=== PATIENT | male | born 1960 | race Caucasian/White ===

== ENCOUNTER 2019-01-17 07:21 | Day surgery (SDC) | payer MEDICAID ==
[~2019-01-17 07:21] MED LIST: Brimonidine 0.2% Ophth Soln 5 ML Bottle EYELF SCH; Cefuroxime 10 MG/ML SYRINGE EYELF SCH; Lidocaine 1% PF 2 ML SDV INJECT SCH; Phenylephrine 2.5% Ophth Soln 2 ML Bot EYELF SCH; Pilocarpine 4% Ophth Soln 15 ML Bot EYELF SCH; Polymyxin B/Trimethoprim 10 ML Bottle EYELF SCH; Tetracaine HCl/PF 0.5% 4 ML Bottle EYELF SCH; Tropicamide 1% Ophth Soln 15 ML Bottle EYELF SCH
[2019-01-17] MEDS: Polymyxin B/Trimethoprim 10 ML Bottle EYELF SCH ×3 (07:39→09:30)
[2019-01-17] MEDS: Brimonidine 0.2% Ophth Soln 5 ML Bottle EYELF SCH ×3 (07:44→09:30)
[2019-01-17] MEDS: Phenylephrine 2.5% Ophth Soln 2 ML Bot EYELF SCH ×5 (07:49→09:08)
[2019-01-17] MEDS: Tropicamide 1% Ophth Soln 15 ML Bottle EYELF SCH ×4 (07:55→08:45)
--- NOTE | 2019-01-17 07:55 | PCM.PREANE ---
Preanesthetic Assessment - Anesthesia/Transfusion/Family Hx Anesthesia History: Prior Anesthesia Without Reaction Family History of Anesthesia Reaction: No Transfusion History: No Prior Transfusion(s) - Review of Systems General: No Symptoms Pulmonary: No Symptoms Gastrointestinal: No Symptoms Neurological: No Symptoms Other: Reports: None - Physical Assessment NPO Status Date: 01/16/19 NPO Status Time: 21:00 Pulse: 73 O2 Sat by Pulse Oximetry: 94 Respiratory Rate: 18 Blood Pressure: 136/82 Temperature: 97.8 C Vital Signs: Last Vital Signs Temp 36.6 C 01/17/19 07:39 Pulse 73 01/17/19 07:39 Resp 18 01/17/19 07:39 BP 136/82 01/17/19 07:39 Pulse Ox 94 L 01/17/19 07:39 Height: 1.63 m Weight: 113.852 kg ASA Class: 1 Mental Status: Alert & Oriented x3 Airway Class: Mallampati = 1 Dentition: Reports: Normal Dentition Thyro-Mental Finger Breadths: 3 Mouth Opening Finger Breadths: 3 ROM/Head Extension: Full Lungs: Clear to Auscultation, Normal Respiratory Effort Cardiovascular: Regular Rate, Regular Rhythm - Allergies Allergies/Adverse Reactions: Allergies Allergy/AdvReac Type Severity Reaction Status Date / Time No Known Allergies Allergy Verified 01/14/19 10:22 - Acknowledgements Anesthesia Type Planned: MAC Pt an Appropriate Candidate for the Planned Anesthesia: Yes Alternatives and Risks of Anesthesia Discussed w Pt/Guardian: Yes Pt/Guardian Understands and Agrees with Anesthesia Plan: Yes PreAnesthesia Questionnaire HEENT History: Reports: Cataract Cardiovascular History: Reports: None Respiratory History: Reports: None Gastrointestinal History: Reports: None Genitourinary History: Reports: None Musculoskeletal History: Reports: Back Pain, Chronic (pt states has herniated disc, needing surgery) Neurological History: Reports: None Psychiatric History: Reports: None Endocrine/Metabolic History: Reports: None - Past Surgical History HEENT Surgical History: Reports: Tonsillectomy Cardiovascular Surgical History: Reports: None Respiratory Surgical History: Reports: None GI Surgical History: Reports: None, Cholecystectomy Female Surgical History: Reports: None Male Surgical History: Reports: None Endocrine Surgical History: Reports: None Neurological Surgical History: Reports: None Musculoskeletal Surgical History: Reports: Arthroscopic Knee, Other (See Below) (foot) - SUBSTANCE USE Tobacco Use Within Last Twelve Months: Smokeless Tobacco - HOME MEDS Home Medications: Home Meds Multivitamin [Multivitamins] 1 tab PO DAILY 01/17/19 [History] Oxybutynin 5 mg PO DAILY 01/17/19 [History] - CURRENT (IN HOUSE) MEDS Current Meds: Current Medications Brimonidine Tartrate (Alphagan 0.2% Ophth Soln) 0 ml EYELF ASDIRECTED IRIS Stop: 01/17/19 18:00 Last Admin: 01/17/19 07:44 Dose: 1 drop Cefuroxime Sodium (Zinacef) 0 mg EYELF ASDIRECTED IRIS Stop: 01/17/19 18:00 Lidocaine HCl (Xylocaine-Mpf 1%) 0 ml INJECT ASDIRECTED IRIS Stop: 01/17/19 18:00 Phenylephrine HCl (Ankush-Synephrine 2.5% Ophth Soln) 0 ml EYELF ASDIRECTED IRIS Stop: 01/17/19 18:00 Last Admin: 01/17/19 07:49 Dose: 1 drop Pilocarpine HCl (Pilocar 4% Ophth Soln) 0 ml EYELF ASDIRECTED IRIS Stop: 01/17/19 18:00 Polymyxin/Trimethoprim Sulfate (Polytrim Ophth Soln) 0 ml EYELF ASDIRECTED IRIS Stop: 01/17/19 18:00 Last Admin: 01/17/19 07:39 Dose: 1 drop Tetracaine HCl (Tetracaine 0.5% Steri-Unit Karine) 0 ml EYELF ASDIRECTED IRIS Stop: 01/17/19 18:00 Tropicamide (Mydriacyl 1% Ophth Soln) 0 ml EYELF ASDIRECTED IIRS Stop: 01/17/19 18:00 Discontinued Medications Brimonidine Tartrate (Alphagan 0.2% Ophth Soln) 0 ml EYELF ASDIRECTED IRIS Stop: 01/15/19 18:00 Cefuroxime Sodium (Zinacef) 0 mg EYELF ASDIRECTED IRIS Stop: 01/15/19 18:00 Lidocaine HCl (Xylocaine-Mpf 1%) 0 ml INJECT ASDIRECTED IRIS Stop: 01/15/19 18:00 Phenylephrine HCl (Ankush-Synephrine 2.5% Ophth Soln) 0 ml EYELF ASDIRECTED IRIS Stop: 01/15/19 18:00 Pilocarpine HCl (Pilocar 4% Ophth Soln) 0 ml EYELF ASDIRECTED IRIS Stop: 01/15/19 18:00 Polymyxin/Trimethoprim Sulfate (Polytrim Ophth Soln) 0 ml EYELF ASDIRECTED IRIS Stop: 01/15/19 18:00 Tetracaine HCl (Tetracaine 0.5% Steri-Unit Karine) 0 ml EYELF ASDIRECTED IRIS Stop: 01/15/19 18:00 Tropicamide (Mydriacyl 1% Ophth Soln) 0 ml EYELF ASDIRECTED IRIS Stop: 01/15/19 18:00
[2019-01-17] MEDS: Tetracaine HCl/PF 0.5% 4 ML Bottle EYELF SCH ×2 (09:02→09:14)
== END 2019-01-17 09:40 | disposition home or self-care (01) ==
LOC: JD.SDS 07:21
PROVIDERS: ATTEND Ophthalmology
DX: H25.813 Combined forms of age-related cataract, bilateral (principal); H16.223 Keratoconjunctivitis sicca, not specified as Sjogren's, bilateral; H16.103 Unspecified superficial keratitis, bilateral; H02.831 Dermatochalasis of right upper eyelid; H02.834 Dermatochalasis of left upper eyelid; F17.200 Nicotine dependence, unspecified, uncomplicated; M19.90 Unspecified osteoarthritis, unspecified site
CPT/HCPCS: 66984; A9270; C1780; J0697; J2001

== ENCOUNTER 2021-05-24 10:28 | Day surgery (SDC) | payer MEDICAID ==
--- NOTE | 2021-05-24 09:50 | PCM.PREANE ---
Preanesthetic Assessment - Procedure Proposed Procedure: Right total knee arthroplasty - Anesthesia/Transfusion/Family Hx Anesthesia History: Prior Anesthesia Reaction Type of Anesthesia Reaction: Other (see below) Other Type of Anesthesia Reaction Comment: Anxious and combative when waking from general anesthesia Family History of Anesthesia Reaction: No Transfusion History: No Prior Transfusion(s) Intubation History: Unknown - Review of Systems General: No Symptoms Pulmonary: No Symptoms Cardiovascular: No Symptoms Gastrointestinal: No Symptoms Neurological: No Symptoms Other: Reports: None - Physical Assessment NPO Status Date: 05/23/21 NPO Status Time: 20:00 Vital Signs: 132/94 HR 72 16 94% 98.3 Height: 1.93 m Weight: 122 kg ASA Class: 2 Mental Status: Alert & Oriented x3 Airway Class: Mallampati = 2 Dentition: Reports: Normal Dentition Thyro-Mental Finger Breadths: 3 Mouth Opening Finger Breadths: 3 ROM/Head Extension: Full Lungs: Clear to Auscultation, Normal Respiratory Effort Cardiovascular: Regular Rate, Regular Rhythm - Lab Values: Labs reviewed and okay to proceed - Imaging/EKG Impressions: EKG 05/04/21: NSR HR 62 Chest xray 05/04/21: No acute findings Myocardial perfusion scan 11/28/17: EF 47-54% - Allergies Allergies/Adverse Reactions: Allergies Allergy/AdvReac Type Severity Reaction Status Date / Time No Known Allergies Allergy Verified 05/21/21 13:54 - Blood Blood Available: No Product(s) Available: None - Anesthesia Plan Pre-Op Medication Ordered: None - Acknowledgements Anesthesia Type Planned: Spinal Pt an Appropriate Candidate for the Planned Anesthesia: Yes Alternatives and Risks of Anesthesia Discussed w Pt/Guardian: Yes Pt/Guardian Understands and Agrees with Anesthesia Plan: Yes PreAnesthesia Questionnaire HEENT History: Reports: Cataract Cardiovascular History: Reports: Other (See Below) Other Cardiovascular History: venous insufficiency, pulmonary HTN, varicose veins Respiratory History: Reports: Bronchitis, Recurrent, PE, Pneumonia, Recurrent Other Respiratory History: Hx pulmonary hypertension Gastrointestinal History: Reports: Gastritis, GERD, Other (See Below) Other Gastrointestinal History: biliary dyskinesia Genitourinary History: Other Genitourinary History: cystoscopy, ED, interstitial cystitis Musculoskeletal History: Reports: Back Pain, Chronic Other Neuro History: Low back pain with bilateral sciatica Psychiatric History: Reports: Anxiety Other Psychiatric History: Insomnia Endocrine/Metabolic History: Reports: None Other Immunologic History: MRSA positive Other Dermatologic History: cold sores - Infectious Disease History Other Infectious Disease History: Recurrent cold sores - Past Surgical History HEENT Surgical History: Reports: Tonsillectomy Cardiovascular Surgical History: Respiratory Surgical History: GI Surgical History: Reports: Cholecystectomy, EGD Female Surgical History: Reports: None Male Surgical History: Reports: None Endocrine Surgical History: Reports: None Neurological Surgical History: Reports: None Musculoskeletal Surgical History: Reports: Arthroscopic Knee, Other (See Below) Other Musculoskeletal Surgeries/Procedures:: left bunionectomy, hallux valgus - SUBSTANCE USE Tobacco Use Status *Q: Former Tobacco User Tobacco Use Within Last Twelve Months: Smokeless Tobacco Second Hand Smoke Exposure: No Days Per Week of Alcohol Use: 1 Number of Drinks Per Day: 1 Total Drinks Per Week: 1 Recreational Drug Use History: No - HOME MEDS Home Medications: Home Meds Albuterol [Ventolin 2 MG/5 ML] 1 puff INH ASDIRECTED PRN 05/21/21 [History] Aspirin 1 tab PO DAILY 05/21/21 [History] Aspirin/Acetaminophen/Caffeine [Excedrin Extra Strength Caplet] 1 tab PO TID PRN 05/21/21 [History] Celecoxib [CeleBREX] 1 cap PO ASDIRECTED PRN 05/21/21 [History] Fish Oil/[place]-3 Fatty Acids [Fish Oil 1,000 MG] 1 cap PO DAILY 05/21/21 [History] Sildenafil Citrate [Viagra] 50 mg PO ASDIRECTED PRN 05/21/21 [History] Tolterodine Tartrate [Detrol LA] 1 cap PO DAILY 05/21/21 [History] valACYclovir [Valtrex] 1 tab PO ASDIRECTED PRN 05/21/21 [History] Apixaban [Eliquis] 2.5 mg PO BID #84 tablet 05/24/21 [Rx] Cyclobenzaprine [Flexeril] 10 mg PO BID PRN #20 tab 05/24/21 [Rx] oxyCODONE 5 - 10 mg PO Q4H PRN #40 tab 05/24/21 [Rx] - CURRENT (IN HOUSE) MEDS Current Meds: Current Medications Acetaminophen (Acetaminophen 325 Mg Tab) 975 mg PO ONETIME IRIS Stop: 05/24/21 16:00 Albuterol (Albuterol 0.083% 2.5 Mg/3 Ml Neb Soln) 2.5 mg NEB ONETIME IRIS Stop: 05/24/21 16:00 Morphine Sulfate 8 mg/Epinephrine HCl 0.3 mg/Cefuroxime Sodium 750 mg/Ketorolac Tromethamine 30 mg/Sodium Chloride 7.9 ml 0 mg .XX ASDIRECTED PRN PRN Reason: Pain Stop: 05/24/21 14:00 Lactated Ringer's (Ringers, Lactated) 1,000 mls @ 125 mls/hr IV ASDIRECTED IRIS Stop: 05/24/21 23:00 Lidocaine/Sodium Bicarbonate (Lidocaine 1%/Sod Bicarbonate In Ns 8.4% 1 Ml Syringe) 0.25 ml IDERM ONETIME PRN PRN Reason: Prior to IV Start Stop: 05/24/21 18:00 Oxycodone HCl (Oxycodone Er 10 Mg Tab.Er) 10 mg PO ONETIME IRIS Stop: 05/24/21 16:00 Pregabalin (Pregabalin 25 Mg Cap) 50 mg PO ONETIME IRIS Stop: 05/24/21 16:00 Sodium Chloride (Sodium Chloride 0.9% 10 Ml Syringe) 10 ml FLUSH ASDIRECTED PRN PRN Reason: Keep Vein Open Stop: 05/24/21 18:00 Discontinued Medications Cefazolin Sodium (Cefazolin 1 Gm Vial) Confirm Administered Dose 2 gm .ROUTE .STK-MED ONE Stop: 05/24/21 08:35 Ephedrine Sulfate (Ephedrine 50 Mg/Ml Sdv) Confirm Administered Dose 50 mg .ROUTE .STK-MED ONE Stop: 05/24/21 08:55 Epinephrine HCl (Epinephrine 1 Mg/Ml Sdv) Confirm Administered Dose 1 mg .ROUTE .STK-MED ONE Stop: 05/24/21 08:24 Fentanyl (Fentanyl 100 Mcg/2 Ml Sdv) Confirm Administered Dose 100 mcg .ROUTE .STK-MED ONE Stop: 05/24/21 08:34 Midazolam HCl (Midazolam 1 Mg/Ml 2 Ml Sdv) Confirm Administered Dose 2 mg .ROUTE .STK-MED ONE Stop: 05/24/21 08:36 Propofol (Propofol 200 Mg/20 Ml Sdv) Confirm Administered Dose 400 mg .ROUTE .STK-MED ONE Stop: 05/24/21 08:36 Ropivacaine (Ropivacaine 0.5% 5 Mg/Ml 30 Ml Sdv) Confirm Administered Dose 30 ml .ROUTE .[email or web address] ONE Stop: 05/24/21 08:24
[~2021-05-24 10:28] MED LIST changes: +Acetaminophen 325 MG Tab PO SCH; +Albuterol 0.083% 2.5 MG/3 ML Neb Soln NEB SCH; -Brimonidine 0.2% Ophth Soln 5 ML Bottle EYELF SCH; -Cefuroxime 10 MG/ML SYRINGE EYELF SCH; +EPINEPHrine 1 MG/ML SDV ONE; +Lactated Ringers 1,000 ML IV SCH; -Lidocaine 1% PF 2 ML SDV INJECT SCH; +Lidocaine 1%/Sod Bicarbonate in NS 8.4% 1 ML Syringe IDERM PRN; +Midazolam 1 MG/ML 2 ML SDV ONE; +Morphine 8 MG, EPINEPHrine 0.3 MG, Cefuroxime 750 MG, Ketorolac 30 MG, Sodium Chloride ... PRN; -Phenylephrine 2.5% Ophth Soln 2 ML Bot EYELF SCH; -Pilocarpine 4% Ophth Soln 15 ML Bot EYELF SCH; -Polymyxin B/Trimethoprim 10 ML Bottle EYELF SCH; +Pregabalin 25 MG Cap PO SCH; +Propofol 200 MG/20 ML SDV ONE; +Ropivacaine 0.5% 5 MG/ML 30 ML SDV ONE; +Sodium Chloride 0.9% 10 ML Syringe FLUSH PRN; -Tetracaine HCl/PF 0.5% 4 ML Bottle EYELF SCH; -Tropicamide 1% Ophth Soln 15 ML Bottle EYELF SCH; +ceFAZolin 1 GM Vial ONE; +ePHEDrine 50 MG/ML SDV ONE; +fentaNYL 100 MCG/2 ML SDV ONE; +oxyCODONE ER 10 MG TAB.ER PO SCH
[2021-05-24] MEDS ORDERED: Vancomycin 1 GM SDV ONE (10:41)
[2021-05-24] MEDS ORDERED: Vancomycin 2 GM in Sodium Chloride 0.9% 500 ML IV ONE (12:00)
[2021-05-24] MEDS ORDERED: Lactated Ringers 1,000 ML ONE (12:39)
[2021-05-24] MEDS ORDERED: Propofol 200 MG/20 ML SDV ONE ×3 (12:54→13:39)
[2021-05-24] MEDS ORDERED: Dexmedetomidine 200 MCG/2 ML SDV ONE (13:22)
[2021-05-24] MEDS ORDERED: Sodium Chloride 0.9% 100 ML ONE (13:22)
--- NOTE | 2021-05-24 14:33 | PCM.POSTAN ---
POST ANESTHESIA ASSESSMENT - MENTAL STATUS Mental Status: Alert, Oriented - VITAL SIGNS Vital Signs: Last Vital Signs Temp 98.3 F 05/24/21 10:35 Pulse 72 05/24/21 10:35 Resp 16 05/24/21 10:35 BP 132/94 H 05/24/21 10:35 Pulse Ox 93 L 05/24/21 11:21 Vitals at 1400: BP: 122/72 HR: 66 RR: 14 Temp: 97.6 92% 4 Liters - RESPIRATORY Respiratory Status: Respiratory Rate WNL, Airway Patent, O2 Saturation Stable - CARDIOVASCULAR CV Status: Pulse Rate WNL, Blood Pressure Stable - GASTROINTESTINAL GI Status: No Symptoms - POST OP HYDRATION Hydration Status: Adequate & Stable
--- NOTE | 2021-05-24 14:39 | PCM.SN.2 ---
- Free Text/Narrative Note: Right selective femoral nerve block at the adductor canal for post-procedure pain control under US guidance requested by Dr. Judd. Time Out: 1413 Start: 1414 End: 1420 Chart reviewed. Consent signed. Questions answered. Appropriate monitors applied. Time out performed. Left mid-shaft femur identified with ultrasound, scanning medially of femur, the femoral artery in the adductor canal visualized, and the femoral nerve located laterally to the artery. The skin was prepped lateral to the ultrasound probe with chlorahexadine times two. The 21ga 4 insulated block needle was inserted under direct ultrasound guidance into the adductor canal. 25 mL of 0.5% ropivacaine with 1:200,000 epinephrine was injected circumferentially around the nerve with intermittent negative aspiration noted. Patient tolerated the procedure well. Sterile technique noted along with sterile gloves, mask, and sterile probe cover. See picture on progress note and vital signs on nurses notes. Block completed in PACU. Ana Lilia Patrick, TIME CLOCK REPAIRER
[2021-05-24] MEDS ORDERED: oxyCODONE 5 MG Tab PO PRN (14:48)
--- NOTE | 2021-05-24 14:52 | PCM48HPAN ---
Post Anesthesia Note - EVALUATION WITHIN 48HRS OF ANESTHETIC Vital Signs in Normal Range: Yes Patient Participated in Evaluation: Yes Respiratory Function Stable: Yes Airway Patent: Yes Cardiovascular Function Stable: Yes Hydration Status Stable: Yes Pain Control Satisfactory: Yes Nausea and Vomiting Control Satisfactory: Yes Mental Status Recovered: Yes Vital Signs: Last Vital Signs Temp 98.3 F 05/24/21 10:35 Pulse 72 05/24/21 10:35 Resp 16 05/24/21 10:35 BP 132/94 H 05/24/21 10:35 Pulse Ox 93 L 05/24/21 11:21 Vital Signs at 1445: 134/72 HR 58 RR 16 95% 2L 97.4
[2021-05-24] MEDS ORDERED: Cyclobenzaprine 10 MG Tab PO SCH (15:00)
--- NOTE | 2021-05-24 15:40 | CR ---
Right knee: 2 views of the right knee were obtained. Comparison: Prior right knee CT study of 05/12/21. Knee prosthesis is seen. Patellar prosthesis is also noted. Soft tissue air is present. No underlying acute osseous abnormality is otherwise seen. Impression: 1. Satisfactory radiographic appearance of recently placed right knee prostheses. Diagnostic code #2
--- NOTE | 2021-06-02 09:29 | PCM.OPNOTE ---
- General Post-Op/Procedure Note Date of Surgery/Procedure: 05/24/21 Operative Procedure(s): right total knee arthroplasty with anton marlena robotics assist Pre Op Diagnosis: right knee osteoarthrosis Post-Op Diagnosis: Same Anesthesia Technique: Local, MAC, Spinal Primary Surgeon: Miguelangel Judd Anesthesia Provider: Ana Lilia Patrick Wet Press Tender: Zonia Kaur Wet Press Tender: Yvette Garcia EBL in mLs: 300 Complications: None Condition: Good Free Text/Narrative:: 7 femure 6 tibia 9mm 38x11
--- NOTE | 2021-06-02 11:29 | OR ---
DATE OF OPERATION: 05/24/2021 SURGEON: Miguelangel Judd MD OPERATION PERFORMED: Right total knee arthroplasty with Gamaro robotic assist. PREOPERATIVE DIAGNOSIS: Right knee osteoarthrosis. POSTOPERATIVE DIAGNOSIS: Right knee osteoarthrosis. ESTIMATED FLUID LOSS: 300 mL. COMPLICATIONS: None. CONDITION: Stable. IMPLANTS: 1. Kevin size 7 CR femur. 2. Riverdale size 6 press-fit tibial baseplate. 3. Size 6, 9 mm CS polyethylene insert. 4. Kevin size 38 x 11 mm press-fit asymmetric patella. DESCRIPTION OF PROCEDURE: The patient was identified in the preoperative holding area. Proper site was marked and identified by the surgeon. The patient was taken back to the operating theater, where after adequate anesthesia, the patient's right lower extremity had a nonsterile tourniquet applied and sterilely prepped and draped in the usual sterile fashion. OR time-out was performed. The patient received 2 g of IV Ancef. Leg sanches was then applied to the right lower extremity, and the right lower extremity was exsanguinated, and the tourniquet was insufflated to 250 mmHg. Standard anterior incision was made, and a medial parapatellar arthrotomy was created. Deep fibers of the MCL were raised, and the anterior fat pad was resected. Attention was turned to the patella. Patella measured a 27, was resected to a 16 for a 38 x 11 mm patella. Drill holes were drilled and found to have adequate bone stock. At this time, two 4.0 Schanz pins were placed intra-incisionally on the femur with the Gamaro robotic array. Two more were placed in the tibia 3 fingerbreadths below the tibial tubercle. The femoral and tibial checkpoints were then placed. Hip center rotation was obtained. The medial and lateral malleoli were marked along with the marking of the femoral and tibial checkpoints. 40 points were then obtained with the blue probe for the CalmSea robotic plan on both the femur and the tibia. The patient's knee was brought to full extension. Varus and valgus stresses were applied as well had 90 degrees of flexion. At this time, the Riverdale micro robotic arm was brought in after the RiverdaleRevizer robotic plantar 20 mm flexion and extension gaps was made for this patient. A straight saw blade was then used for the tibial cut, the anterior femoral cut, and the posterior femoral cut. Saw blade was then switched, and the distal femoral cut and posterior chamfer cuts were completed. All bony fragments were removed. Medial and lateral menisci were resected. Posterior osteophytes were resected. At this time, size 6 trial baseplate was placed. Size 7 trial femur was placed. A 9 mm trial poly was then placed, and the patient's knee had full extension, full flexion, no signs of instability to varus and valgus stresses with good range of motion. At this time, the Bancore A/S micro robotic array and checkpoints were removed as well as the 4.0 Shantz pins. The femoral drill holes were then drilled, and the tibia was stamped and drilled in the proper rotation. The size 6 tibia was then impacted in place. Size 7 femur was impacted [address] place. A 9 mm polyethylene was then placed. The patient's knee was brought into full extension. A 38 x 11 mm patella was press-fit into place. Tourniquet was deflated. Bleeders were cauterized. Periarticular injection was completed. 1 L of pulse lavage irrigation with Ancef was irrigated through the knee along with 400 mL Irrisept irrigation. Topical tranexamic acid and vancomycin powder were applied. A #2 barbed suture was used for closure of the medial parapatellar arthrotomy. 2-0 Vicryl and Stratafix were used for subcutaneous closure, and Prineo was used for skin closure. The patient had a sterile soft dressing applied and was sent to the PACU in stable condition. ANESTHESIA: ESTIMATED BLOOD LOSS: MMODAL /[id number]
== END 2021-05-24 16:36 | disposition home or self-care (01) ==
LOC: JD.SDS 10:28 → JD.MS 16:46
PROVIDERS: ATTEND Orthopaedic Surgery
DX: M17.11 Unilateral primary osteoarthritis, right knee (principal); M25.761 Osteophyte, right knee; Z87.891 Personal history of nicotine dependence; Z79.899 Other long term (current) drug therapy; Z87.01 Personal history of pneumonia (recurrent); Z79.82 Long term (current) use of aspirin
CPT/HCPCS: 27447; 73560; 94640; 97116; 97161; A9270; C1713; C1776; J0171; J0690; J0697; J1885; J2250; J2270; J2704; J2795; J3010; J3370; J7040; J7120; 01402; 64450; 76942

== ENCOUNTER 2023-06-13 13:58 | Emergency (ER) | payer MEDICAID ==
[2023-06-13] MEDS ORDERED: Sodium Chloride 0.9% 10 ML Syringe FLUSH PRN (14:42)
[2023-06-13] MEDS ORDERED: Sodium Chloride 0.9% 45 ML IV SCH (14:45)
[2023-06-13] MEDS ORDERED: Sodium Chloride 0.9% 1,000 ML IV SCH (14:45)
[2023-06-13 15:00] LABS: BASOPHILS ABSOLUTE AUTO 0.02 K/mm3 (0.01-0.08); BASOPHILS PERCENT AUTO 0.3 % (0.1-1.2); EOSINOPHILS ABSOLUTE AUTO 0.14 K/mm3 (0.04-0.54); HEMATOCRIT 41.9 % (40.1-51.0); IMMATURE GRAN ABSOLUTE AUTO 0.01 K/mm3 (0.00-0.10); IMMATURE GRAN PERCENT AUTO 0.1 % (<=1.0); LYMPHOCYTES ABSOLUTE AUTO 1.18 K/mm3 (1.32-3.57); LYMPHOCYTES PERCENT AUTO 16.5 % (21.8-53.1); MEAN CORPUSCULAR HEMOGLOBIN 30.3 pg (25.7-32.2); MEAN CORPUSCULAR HGB CONC 33.4 g/dl (32.2-35.5); MEAN CORPUSCULAR VOLUME 90.7 fl (79.0-92.2); MEAN PLATELET VOLUME 9.4 fl (9.4-12.3); MONOCYTES ABSOLUTE AUTO 0.58 K/mm3 (0.30-0.82); MONOCYTES PERCENT AUTO 8.1 % (5.3-12.2); NEUTROPHILS ABSOLUTE AUTO 5.21 K/mm3 (1.78-5.38); PLATELET COUNT,PLT 301 K/mm3 (163-337); RED BLOOD CELL COUNT 4.62 M/mm3 (4.63-6.08); WHITE BLOOD CELL COUNT,WBC 7.14 K/mm3 (4.23-9.07)
[2023-06-13 15:13] LABS: A/G RATIO 0.8 (1-2); ALBUMIN 3.3 g/dl (3.4-5.0); ANION GAP 10.1 (5-15); BILIRUBIN TOTAL 0.7 mg/dL (0.2-1.0); BUN/CREATININE RATIO 21.1 (14-18); CALCIUM 8.9 mg/dL (8.5-10.1); CREATININE 0.9 mg/dL (0.7-1.3); EST CRCL DRUG DOSING (CG) 101.8 mL/min; POTASSIUM,K 4.1 mEq/L (3.5-5.1); PROTEIN TOTAL,TP 7.4 g/dl (6.4-8.2)
[2023-06-13] MEDS: Iopamidol 755 Mg/ML 100 ML Bottle IVPUSH ONE ×2 (15:40→16:19)
[2023-06-13 15:58] LABS: CORONAVIRUS COVID-19 NAA NEGATIVE (NEGATIVE); INFLUENZA A NAA NEGATIVE (NEGATIVE); RESPIRATORY SYNCYTIAL VIR NAA NEGATIVE (NEGATIVE)
[2023-06-13 17:13] LABS: LACTIC ACID 0.7 mmol/L (0.4-2.0)
== END 2023-06-13 18:26 | disposition home or self-care (01) ==
LOC: JD.ED 13:58
DX: R07.89 Other chest pain (principal); R06.00 Dyspnea, unspecified; K21.9 Gastro-esophageal reflux disease without esophagitis; I10 Essential (primary) hypertension; E66.9 Obesity, unspecified; Z68.34 Body mass index [BMI] 34.0-34.9, adult; Z20.822 Contact with and (suspected) exposure to COVID-19; Z79.899 Other long term (current) drug therapy; Z79.01 Long term (current) use of anticoagulants; Z86.16 Personal history of COVID-19; Z90.49 Acquired absence of other specified parts of digestive tract
CPT/HCPCS: 0241U; 36415; 71275; 80053; 83605; 83880; 84484; 85025; 87040; 93005; 99285; J3490; J7030; Q9967